=== PATIENT | female | born 1980 | race Caucasian/White ===

== ENCOUNTER 2022-04-04 14:53 | Outpatient (RCR) | payer BC, SELFPAY | END 2022-04-05 23:59 | disposition home or self-care (01) | LOC: CCIC 14:53 | PROVIDERS: PCP Family Medicine; Visit Provider Internal Medicine Hematology & Oncology | DX: C50.911 Malignant neoplasm of unspecified site of right female breast (principal); Z17.0 Estrogen receptor positive status [ER+]; Z90.13 Acquired absence of bilateral breasts and nipples; R23.2 Flushing; N93.9 Abnormal uterine and vaginal bleeding, unspecified; I89.0 Lymphedema, not elsewhere classified; R10.11 Right upper quadrant pain; N95.2 Postmenopausal atrophic vaginitis; G62.9 Polyneuropathy, unspecified | CPT/HCPCS: 99212; 99214 ==

== ENCOUNTER 2022-06-06 08:33 | Outpatient (CLI) | payer BC, SELFPAY ==
[2022-06-06 10:26] LABS: Cholesterol* 204 mg/dL (90-199); Glucose* 90 mg/dL (60-115); HDL Cholesterol* 75 mg/dL (>=50); LDL Cholesterol Calculated 112 mg/dL (<100); Triglycerides* 83 mg/dL (40-149)
== END 2022-06-06 08:34 | disposition home or self-care (01) ==
PROVIDERS: PCP Family Medicine; Visit Provider Registered Nurse
DX: Z01.419 Encounter for gynecological examination (general) (routine) without abnormal findings (principal); R00.2 Palpitations; Z13.1 Encounter for screening for diabetes mellitus; Z13.6 Encounter for screening for cardiovascular disorders
CPT/HCPCS: 80061; 82947; 84443

== ENCOUNTER 2022-06-20 14:14 | Outpatient (CLI) | payer BC, SELFPAY ==
--- NOTE | 2022-06-20 14:30 | CRLHL7_ITS ---
For Patients: As a result of the Century Cures Act, medical imaging exams and procedure reports are released immediately into your electronic medical record. You may view this report before your referring provider. If you have questions, please contact your health care provider. HISTORY: Left hip pain. History of breast cancer. TECHNIQUE: MRI left hip with and without contrast. 15 cc IV Dotarem. COMPARISON: 07/21/2020 PET-CT FINDINGS: Left hip: No significant joint effusion. Articular cartilage is intact. Acetabular labrum is intact. No avascular necrosis. - Right hip: On the large [id number]-ck-sxyw images of the entire pelvis, articular cartilage about the right hip is intact. No significant right hip effusion. Technique is not optimized for evaluation of internal derangement of the right hip. - Osseous structures: There is no acute pelvic or proximal femoral fracture. No suspicious osseous lesion. - Musculotendinous structures and bursae: Gluteal tendons and muscles are intact. Hamstring origins are intact.The distal iliopsoas tendons are intact. No evidence of trochanteric or iliopsoas bursitis. Muscle volume is within normal limits. - Other findings: Pubic symphysis and sacroiliac joints are intact. - Intrapelvic soft tissues: No significant abnormality. IMPRESSION: No specific findings to account for patient`s symptoms. No suspicious osseous lesion. Dictated by Delano Lockwood MD @ 06/21/2022 11:00:16 AM (Electronically Signed)
--- NOTE | 2022-06-21 11:35 | ONC.NURNOTE ---
Breast Safety Clothing And Equipment Developer Note Called pt and reviewed MRI results with her. No osseous lesions or other issue noted on report. Copy in Dr. Tidwell's folder to review when next in clinic.
== END 2022-06-20 14:15 | disposition home or self-care (01) ==
LOC: MRI 14:15
PROVIDERS: PCP Family Medicine; Visit Provider Internal Medicine Hematology & Oncology
DX: Z85.3 Personal history of malignant neoplasm of breast (principal); M25.552 Pain in left hip
CPT/HCPCS: 73723; A9575

== ENCOUNTER 2022-11-20 13:45 | Outpatient (RCR) | payer BC, SELFPAY | END 2022-12-14 15:24 | disposition home or self-care (01) | PROVIDERS: PCP Family Medicine; Visit Provider Family Medicine | DX: I89.0 Lymphedema, not elsewhere classified (principal); Z51.89 Encounter for other specified aftercare | CPT/HCPCS: 97110; 97161 ==

== ENCOUNTER 2022-12-28 08:30 | Outpatient (RCR) | payer BC, SELFPAY ==
--- NOTE | 2022-08-28 14:57 | PC.NURSE ---
ONCOLOGY TRANSFER: Patient called to discuss the letter she had received in the mail about [facility]/Dr. Tidwell. Patient informed that starting in December, Dr. Tidwell will be seeing patients in [place] as a [facility] provider. Patient requests to continue her care with Dr. Tidwell and the [facility] providers.
== END 2023-02-03 23:59 | disposition home or self-care (01) ==
LOC: CCIC 08:30
PROVIDERS: PCP Family Medicine; Visit Provider Nurse Practitioner Family
DX: C50.911 Malignant neoplasm of unspecified site of right female breast (principal); Z17.0 Estrogen receptor positive status [ER+]; Z79.810 Long term (current) use of selective estrogen receptor modulators (SERMs); Z90.13 Acquired absence of bilateral breasts and nipples; K64.9 Unspecified hemorrhoids
CPT/HCPCS: 99212; 99214; 99215

== ENCOUNTER 2023-03-26 07:30 | Outpatient (RCR) | payer BC, SELFPAY ==
--- OUTSIDE RECORDS SUMMARY | 2022-03-30 09:05 | XMS_ITS | Continuity of Care Document ---
:1980 Author Care Team Providers Name Role Phone MD Merle Howard Primary Care Physician MD Yaw Attending Physician Unavailable Allergies, Adverse Reactions, Alerts Allergen Type Severity Reaction Last Verified Status Updated Penicillin Allergy Moderate hives May Yes Active 2020 Sulfa Allergy Moderate hives May Yes Active Antibiotics 2020 Social History Smoking Status Status Start Date End Date Date of Observat ion Never smoked tobacco December 07, 2021 7:01am (finding) Observation Status Observation Response Date of Response Does not exercise November 07, 2016 1 2:53pm Non-smoker November 07, 2016 1 2:53pm Social drinker November 07, 2016 1 2:53pm , 2 kids, 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 Own home/apt July 29, 2020 1 0:55am With whom do you live? Spouse July 29 0 10:55am Minor children July 29, 2020 1 0:55am Comment on who patient lives 16 AND 13 YEAR OLD CHILDREN Oct mynor 2019 10:55am with If YES, describe MINOR CHILDREN BUT THEY ARE July 10:55am PRETTY INDEPENDENT Additional Data Assigned Sex Female Problems Active Problems Medical Problem Onset Date Status Irritable bowel syndrome (IBS) Active Anxiety Active Herpes labialis Active History of kidney stones Active Varicose veins of both lower Active extremities Venous incompetence December, Active Invasive ductal carcinoma of right July, Activ e breast in female Health care directive on file January 21, 2020 Active Suspected 2019 novel coronavirus Active infection Educated about COVID-19 virus Active infection Encounter for screening for Active COVID-19 Tachycardia Active Palpitations Active [place] teeth extracted 1997 Active Hx of varicose vein stripping 2011 Active History of colonoscopy 2014 Active History of use of contraceptive Active intrauterine device (IUD) S/P mastectomy, bilateral August 02, 2020 Active Inactive/Resolved Problems Medical Problem Onset Date Status Varicose Vein Surgery Resolved Fluttering sensation of heart Resolved Irregular heart beats Resolved Medications Medication Status Dose Units Route Directions Qty Days Start End Ins tructions Date Date Cholecalcife Active 5000 UNIT OR Daily rol (Vitamin D3) 1,000 Unit TAB Fexofenadine Active 1 TAB PO Daily Hcl/Pseudoep hedrine (Fexofenadin e-Pseudoephe drine) 180 Mg/240 Mg TABCR Lactobacillu Active 1 CAP PO Daily s (Probiotic) CAP Magnesium Active 3 CAP PO Daily 360mg dot ly Glycinate (Magnesium Glycinate 665 Mg) 1 Cap CAP Nystatin Active 1 YAQUELIN TOP 2-3X/Day as 30 (Nystatin needed Cream) 30 Gm CR Idmkb-8-Tyvs Active 1200 MG PO Daily 100 Ethyl Esters (Fish Oil) 1,200 Mg CAP Oxybutynin Active 5 MG PO Twice A Day December ta ke half to Chloride , one tablet 2021 rwice daily. 8:55am Tamoxifen Active 20 MG PO Daily March Citrate 2020 2:48pm Triamcinolon Active 1 YAQUELIN TOP Twice A Day 21 March e Acetonide 8th, (Triamcinolo 2021 ne Acetonide 10:50am (Cream)) 0.1 % CRE Valacyclovir Active 2 GM PO As Directed 30 March 2 tab po q 12 Hcl as needed 8th, h x 24 h , 2021 NEEDED FOR 10:50am COLD SORES Vitamin E Active 180 MG PO Daily Acetaminophe Disconti 1-2 TAB PO Every 6 Julyb n/Hydrocodon nued Hours as , er e Bitart needed 2019, (Hydrocodone 9:03am 2019 -Acetaminoph 2:02pm en) 5 Mg/325 Mg TAB Aloe Vera Disconti 1 EACH PO Daily INGEST ING 1/4 (Bulk) (Aloe nued er CUP RAW ALOE Vera Virgil) , VERA LEAF Virgil POW 2019 DAILY 1:27pm Aloe Vera Disconti 99.5 % PO Daily Octobe (Topical) nued r (Aloe Vera , Gel) 99.5 % 2019 GEL 11:39a m Ascorbic Disconti 1000 MG PO Daily 100 Novemb Acid nued er (Vitamin C) , 1,000 Mg TAB 2019 1:27pm Azithromycin Disconti 250-50 MG PO As Directed 6 Februar F ebrua 500 MG ON DAY (Zithromax nued 0 y 6th, ry 1 THEN 2 50 MG Z-[place]) 250 2020 08, DAILY X 4 MORE Mg TAB 8:48am 2019 DAYS 2:12pm Azithromycin Disconti 250 MG PO As Directed 6 Decembe Ja nuar 2 TABS ON DAY (Zithromax nued r , y 8th, ONE TH EN 1 TAB Z-[place]) 250 2014 2015 DAILY DAY S 2-5 Mg TAB 2:36pm 1:07pm Bioflavonoid Disconti 2 TAB PO Daily Octobe Products nued r (Vitamin C , Plus 500 Mg) 2019 1 Tab TAB 11:39a m Calcium Disconti 500 MG PO Daily Novemb Carbonate nued er 2019 1:27pm Calcium-Magn Disconti 1 OR Daily December esium-Zinc nued , ( 2021 Calcium/Magn 8:36am esium/Zinc) TAB Calcium-Magn Disconti Unknow OR Februa esium-Zinc nued n Dose ry (Calcium , Magnesium & 2020 Zinc) 8:15am Unknown Strength TAB Cephalexin Disconti 500 MG PO Four Times 56 July b nued Daily , er 2020 , 9:03am 2019 2:02pm Chemtox Disconti DROP PO Twice A Day Mayed 2020 10:24a m Cholecalcife Disconti 1000 UNIT PO Daily 100 Novemb rol (Vitamin nued er D) 1,000 25th, Unit TAB 2019 1:27pm Cholecalcife Disconti 1 DROP PO Daily Octobe rol (Vitamin nued r D3) SHELLY 2019 11:39a m Cyanocobalam Disconti 1000 MCG PO Daily 100 Novemb in (Vitamin nued er B 12) 1,000 25th, Mcg TAB 2019 1:27pm Cyanocobalam Disconti 2 TAB PO Daily Octobe in (Vitamin nued r B 12) 500 rd, Mcg TAB 2019 11:39a m Cyanocobalam Disconti 2500 MCG PO Daily 100 Septem in (Vitamin nued yony B 12) 1,000 6th, Mcg TAB 2017 9:06am Dicyclomine Disconti 10 MG PO Four Times 56 Novembe Sept em Hcl (Bentyl) nued Daily r 23, yony 10 Mg CAP 2014 6th, 11:40am 2016 9:06am Diphtheria/T Disconti 0.5 ML IM Once 1 March etanus/Acell nued , , Pertussis 2017 2017 (Adacel) 0.5 3:18pm 3:21pm Ml INJ Doxycycline Disconti 100 MG PO Twice Daily 20 March Hyclate nued For 7 Days 2020 2:19pm Doxycycline Disconti 100 MG PO Twice Daily October dian Monohydrate nued For 10 Days 2019, 11:18am 2019 8:15am Ethinyl Disconti 1 TAB PO Daily February Octobe Estradiol/Le nued , r 2nd, vonorgestrel 2018 2018 (Lutera) 0.1 9:24am 9:26am Mg/0.02 Mg TAB Fexofenadine Disconti 180 MG PO Daily 90 Octobe Hcl (Keiko nued r Allergy) 180 , Mg TAB 2015 11:25a m Fish Oil Disconti 640 MG PO Daily Novemb nued er 2019 1:27pm Fluconazole Disconti 150 MG PO Once 1 Februa (Diflucan) nued ry 150 Mg TAB 2020 10:33a m Glucosamine Disconti 1000 MG PO Daily Novemb Sulfate nued er (Glucosamine , ) 1,000 Mg 2019 CAP 1:27pm Hydrocodone- Disconti 1-2 TAB PO Every 4-6 25 Septemb David velasco Acetaminophe nued Hours as er , er n ([place]) 5 needed 2016, Mg/325 Mg 10:57am 2016 TAB 1:46pm Loratadine Disconti 10 MG PO Daily 30 Decemb (Claritin) nued er 10 Mg TAB 2020 1:44pm Magic Disconti 5 ML PO Four Times 120 Decembe Debbi SWIS H AND SPIT, or swallow if throat is sore Mouthwash nued Daily as r , February C OMPOUND IF FIRST PRODUCT NOT COVERED (Lidocaine/B needed 2019 2020 enadryl/Maal 3:19pm 2:19pm ox) (First-Mouth wash Blm) Blm HIMANSHU Magnesium Disconti 0.02 TSP PO Daily Novemb 10/14 TS P Chl Akanksha nued er CRYSTALS , DISSOLVED IN 2019 CRANBERRY 1:27pm JUICE Magnesium Disconti 0.1 TSP XX Daily Decemb Chloride nued er (Magnesium , Chloride 2020 Hexahy) CRY 1:44pm Montelukast Disconti 10 MG PO Bedtime 05 August Decemb Sodium nued , er (Singulair) 2014, 10 Mg TAB 1:53pm 2014 2:26pm Multivitamin Disconti 1 TAB PO Daily Novemb s nued er (Multivitami , n/Minerals) 2019 TAB 1:27pm Nystatin Disconti 1 YAQUELIN TOP 2-3X/Day Mayobe (Nystatin nued , r Cream) 30 Gm 2019, CR 9:39am 2019 11:39a m Nystatin Disconti 403238 MG OR Daily Decemb (Bio-Statin) nued er Unknown , Strength CAP 2014 2:26pm Nystatin/Tri Disconti 1 YAQUELIN TOP Twice A Day Se ptem amcinolone nued r , yony Acetonide 2016 03, (Nystatin/Tr 1:32pm 2016 iamcinolone 9:06am Cream) 15 Gm CR Ondansetron Disconti 4 MG PO Every 6 30 Decembe March f or nausea not controlled with prochlorperazine Hcl nued Hours as r , , (compazin e), starting day 2 after chemotherapy. needed 2019 2020 11:17am 2:19pm Pentoxifylli Disconti 400 MG PO Three Times Erick h ne nued A Day , (Pentoxifyll 2021 ine Er) 400 8:36am Mg TAB Prednisone Disconti 20 MG PO Daily 5 Februar Februa nued y , ry 2020 08, 8:48am 2019 2:12pm Prednisone Disconti 20 MG PO Daily as 3 Octobe nued needed er r 13, , 2015 2015 10:40am 11:25a m Prochlorpera Disconti 10 MG PO Every 8-12 30 Novembe Demarcus e PRN zine Maleate nued Hours as r , , Na usea/vomitin needed for 2019 2020 g Nausea/Vomi 3:20pm 2:19pm ting Prochlorpera Disconti 10 MG PO Every 8-12 October dian PRN zine Maleate nued Hours as 13, ry Naus ea/vomitin needed for 2020 10th, g Nausea/Vomi 10:10am 2020 ting 10:33a m Rifampin Disconti 300 MG PO Twice A Day 13 March nued 2020 2:19pm Triamcinolon Disconti 1 YAQUELIN TOP Twice A Day May e e Acetonide nued , (Triamcinolo 2020 2021 ne Acetonide 8:43am 10:50a (Cream)) 0.1 m % CRE Ultimate Disconti 1120 MG PO Daily Octobe [place] nued r 2019 11:39a m Valacyclovir Disconti 2 GM PO As Directed Ju ne 2 tab po q 12 Hcl nued as needed r , h x 24 h , 2020 2021 NEEDED FOR 1:42pm 10:50a COLD SORES m Valacyclovir Disconti 1 GM PO As Directed Nov mb NEEDED FOR Hcl nued as needed er COLD SORES 2020 1:42pm Valacyclovir Disconti 1 GRAMS PO Three Times uar Oc amari Hcl nued A Day y 11, r (Valtrex) 1 2019, Gm TAB 2:42pm 2019 11:39a m Valacyclovir Disconti 2 GRAMS PO Twice A Day 10 October Au itzel Hcl nued , , (Valtrex) 1 2017 2019 Gm TAB 11:11am 10:56a m Valacyclovir Disconti 2 GRAMS PO Twice A Day 10 July Ja nuar Hcl nued , y (Valtrex) 1 2016, Gm TAB 3:pm 2017 11:11a m Valacyclovir Disconti 500 MG PO Twice A Day 16 October Se ptem Hcl nued 8th, yony (Valtrex) 2016 6th, 500 Mg TAB 1:20pm 2016 9:06am Valacyclovir Disconti 2000 MG PO Twice A Day 4 Decembe De cemb Hcl nued r 7th, er (Valtrex) 2014, 1,000 Mg TAB 4:37pm 2015 11:16a m Vitamin A Disconti 63327 UNIT PO Daily Novemb ([id number]) nued er 10,000 Unit , CAP 2019 1:27pm Zinc Disconti 30 MG PO Daily Novemb nued er 2019 1:27pm Zinc Sulfate Disconti 30 MG PO Daily 100 Octobe (Zinc nued r Sulfate (50 23rd, Mg 2019 Elemental)) 11:39a 220 Mg CAP m Zinc Sulfate Disconti 220 MG PO Daily 100 Septem (Zinc nued yony Sulfate (50 6th, Mg 2016 Elemental)) 9:06am Unknown Strength CAP Immunizations Immunization Event Date Not Given Dose Elevator Installer Lot Vac cine Reason Number Number Informatio n Statement (VIS) Deta il COVID-19 Moderna December 19, 2020 COVID-19 Moderna January 16, 2020 COVID-19 Moderna July 07, 2020 Influenza July Other SANOFI 2019 Reason Influenza August 082019 Influenza July 072019 Tetanus/Diptheri March 04, 1 a 2007 Tdap March 04, 1 (adolescent/adul 2007 t) Tdap March 11, 2 SANOFI (adolescent/adul 2017 t) Medical Equipment Device Date Implanted Device Details Heidi 133S Tissue August 02, 2020 THAIS: [id number] Expanders Issuing Agency: [facility] Device Id: [id number] Expiration Date: 02-05-24 Serial Number: [id number] Natrelle 133S Tissue August 02, 2020 THAIS: [id number] Expanders Issuing Agency: [facility] Device Id: [id number] Expiration Date: 02-05-24 Serial Number: [id number] PowerPort [employer] Implantable September 05, 2020 THAIS: [id number] Port Issuing Agency: [facility] Device Id: [id number] Expiration Date: 11-11-30 Lot Number: [id number] Advance Directives Advance Directive Response Recorded Date/Time Does Pt have Health Care No October 18 016 2:13pm Directive? Has patient completed a Yes December 07, 2021 7:01am Health Care Directive? Insurance Providers Guarantor Gilda Herrera Address [address] [facility] [address] Contact Info. Home Phone: Payer Policy Id Coverage Id Subscriber's Subscriber Id Effective E xpiration Name Date Date [place] [id number] Micky Herrera [place] [id number] Encounters Encounter Location(s) Arrival/Admit Date Discharge/Depart Date Provider(s) Registered [place] March 28, 2022 [facility] 4:00pm Plan of Treatment Future Tests Future scheduled test information is unavailable Pending Tests Pending diagnostic test information is unavailable Future Visits Future appointment information is unavailable Referrals to Other Providers Reason for Referral Start Provider Provider Contact Provider Address Referral Date Information Sunita Howard Work Phone: [facility] MARYANNE Adkins MD [address] [facility] [phone] Future Procedures Future procedure information is unavailable Future Medications Future medication information is unavailable Patient Instructions See Additional Instructions Heart Palpitations (ED) Tachycardia (ED) Charlie-Issa Drain Care (DC) Mastectomy (DC) Palonosetron (By injection) (Aloxi) Fosaprepitant (By injection) (Emend)
== END 2023-03-26 11:46 | disposition home or self-care (01) ==
PROVIDERS: PCP Family Medicine; Visit Provider Internal Medicine Hematology & Oncology
DX: I89.0 Lymphedema, not elsewhere classified (principal); Z51.89 Encounter for other specified aftercare
CPT/HCPCS: 97110; 97140; 97530

== ENCOUNTER 2023-06-04 07:35 | Outpatient (CLI) | payer BC, SELFPAY | END 2023-06-04 07:36 | disposition home or self-care (01) | LOC: NFLDREF 06-06 12:22 | PROVIDERS: PCP Family Medicine; Referring Provider Family Medicine; Visit Provider Registered Nurse | DX: Z01.419 Encounter for gynecological examination (general) (routine) without abnormal findings (principal); R79.89 Other specified abnormal findings of blood chemistry; Z13.6 Encounter for screening for cardiovascular disorders | CPT/HCPCS: 80053; 80061; 82607; 84443 ==

== ENCOUNTER 2023-06-12 09:34 | Outpatient (CLI) | payer BC, SELFPAY | END 2023-06-12 09:35 | disposition home or self-care (01) | PROVIDERS: PCP Family Medicine; Visit Provider Registered Nurse | DX: Z01.419 Encounter for gynecological examination (general) (routine) without abnormal findings (principal); R79.89 Other specified abnormal findings of blood chemistry; Z13.9 Encounter for screening, unspecified | CPT/HCPCS: 80048; 84443 ==

== ENCOUNTER 2023-10-21 14:10 | Outpatient (RCR) | payer BC, SELFPAY | END 2023-10-29 23:59 | disposition home or self-care (01) | LOC: CCIC 14:10 | PROVIDERS: PCP Family Medicine; Visit Provider Physician Assistant | DX: C50.911 Malignant neoplasm of unspecified site of right female breast (principal); Z17.0 Estrogen receptor positive status [ER+]; Z90.13 Acquired absence of bilateral breasts and nipples; F41.9 Anxiety disorder, unspecified; R23.2 Flushing | CPT/HCPCS: 99212; 99213; 99214; 99215; G0463 ==

== ENCOUNTER 2023-12-23 08:58 | Outpatient (CLI) | payer BC, SELFPAY | END 2023-12-23 08:59 | disposition home or self-care (01) | LOC: NFLDREF 12-25 11:21 | PROVIDERS: PCP Family Medicine; Referring Provider Family Medicine; Visit Provider Physician Assistant | DX: R74.01 Elevation of levels of liver transaminase levels (principal) | CPT/HCPCS: 80076 ==

== ENCOUNTER 2024-04-29 15:00 | Outpatient (RCR) | payer BC, SELFPAY ==
--- NOTE | 2023-11-08 13:43 | ONC.NURNOTE ---
Patient sent [employer] the following email: From: Merary Herrera [email or web address]> To: Aide [facility] [email or web address] Subject: Question For Jahaira Noble, I thought of a question I forgot to ask Jahaira at my appointment last week. A few months ago I had labs drawn before my well women?s exam. One of the tests that had to do with electrolytes was a little off. I talked with my doctor about it a little and she said I could have it tested again in a few months. Is this something I *should* follow up on, like is it a residual chemo problem? Or is it possible that I was dehydrated or some other bwi-k-zhx-deal kind of thing??On a side note, it is shocking how little the other departments take chemo into effect. My white count was FINALLY normal! Anyway, just wanted to ask while I was thinking about it. Patient informed that Jahaira reviewed her results. Patient reassured that her liver enzymes are not abnormal enough to be alarmed but because Tamoxifen can affect her LFTs, Jahaira recommends we check her LFTs in December. Patient also informed that there is no concern about her anion gap in terms of cancer. Patient informed of the same and she will call to schedule labs.
--- NOTE | 2024-02-24 15:08 | ONC.NURNOTE ---
Patient emailed [employer] to report that the [employer] is recommending an alternate therapy for the management of her hot flashes, due to using Oxybutynin for an off label purpose. 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 Patient informed that Dr. Tidwell sent an Rx for Veozah. We discussed the need to monitor LFTs. Patient recently had normal LFTs. We will repeat at her follow up in April. Patient verbalizes understanding.
[2024-04-28 12:07] LABS: Albumin* 4.3 g/dL (3.3-5.0)
[2024-04-28 12:09] LABS: Bilirubin Direct* 0.2 mg/dL (0.0-0.5); Bilirubin Total* 0.4 mg/dL (0.1-1.5)
[2024-04-28 12:10] LABS: Alanine Aminotransferase* 19 U/L (4-35); Alkaline Phosphatase* 57 U/L (40-150); Aspartate Amino Transferase* 32 U/L (12-35); Total Protein* 7.3 g/dL (6.0-8.3)
== END 2024-10-25 23:59 | disposition home or self-care (01) ==
LOC: CCIC 15:00
PROVIDERS: Internal Medicine Hematology & Oncology; PCP Family Medicine; Referring Provider Family Medicine; Visit Provider Internal Medicine Hematology & Oncology
DX: C50.911 Malignant neoplasm of unspecified site of right female breast (principal); Z17.0 Estrogen receptor positive status [ER+]
CPT/HCPCS: 36415; 80076; 99214; G0463

== ENCOUNTER 2024-06-17 10:51 | Outpatient (CLI) | payer BC, SELFPAY ==
--- OUTSIDE RECORDS SUMMARY | 2024-06-17 10:53 | XMS_ITS ---
Author Organization [facility] Address [address] [place] [address] Care Team Providers Care Pipe Line Walker Name Role Phone Unavailable Unavailable Unavailable Surgery Details Not on file Complications Check Surgery Details section. Procedure Estimated Blood Loss Check Surgery Details section. Procedure Findings Check Surgery Details section. Procedure Specimens Taken Check Surgery Details section.
--- OUTSIDE RECORDS SUMMARY | 2024-06-17 10:53 | XMS_ITS | Referral Summary ---
Author Organization [facility] Address [address] [place] [address] Care Team Providers Care Chairman And Chief Executive Officer Name Role Phone Elsewhere, Pcp Primary Care Provider Unavailabl e Source Comments Patient records contain information from all sites at [facility]. For routine questions regarding patient records, call [phone] during business hours, M-F 8:00 AM - 5:00 PM Central Time. Record requests for emergency care only can be directed to [phone] at any time.[facility] Allergies Active Allergy Reactions Criticality Noted Date Comments Penicillins Rash Low 06/08/2017 Sulfa (Sulfonamide Antibiotics) Rash Low 11/2016 Medications Medication Sig Dispensed Refills Start Date End Date Status Lactobacillus acidophilus (PROBIOTIC) 10 billion cell capsule Take by mouth. Active cholecalciferol (cholecalciferol) 1,000 Unit tablet Take 1,000 Units by mouth daily. Active tamoxifen (NOLVADEX) 20 mg tablet Take 20 mg by mouth daily. 04/05/2021 Active MAGNESIUM GLYCINATE ORAL Take 2 Scoops by mouth daily. 2 tsp 02/17/2021 Active oxyBUTYnin (DITROPAN) 5 mg tablet Take 2.5 mg by mouth 2 (two) times a day. 02/26/2023 Active omega-3 fatty acids-fish oil (fish oil) 360-1,200 mg capsule Take 1 capsule by mouth daily. Active Active Problems Problem Noted Date Diagnosed Date Malignant Neoplasm Of Breast Lower Outer Quadrant Female Right 08/17/2020 Cancer Staging:Pathologic stage from 08/02/2020:Stage IA(pT1c, pN1a, cM0, G2, ER+, NE+, HER2-) - Signed by Jl Mcleod M.D. on 08/17/2020 Immunizations Name Administration Dates Next Due Influenza, Unspecified 08/17/2020 SARS-COV-2 (COVID-19) - MODERNA(Discontinued) Td Preservative Free (TENIVAC, DECAVAC) 03/04/20 08 Tdap 03/11/2018,2008 Social History Tobacco Use Types Packs/Day Years Used Date Smoking Tobacco: Never Smokeless Tobacco: Never Tobacco Cessation:Counseling Given: Not Answered Alcohol Use Standard Drinks/Week Comments Not Currently 0 (1 standard drink = 0.6 oz pur e alcohol) Humiliation, Afraid, Rape, and Kick questionnair e Answer Date Recorded Within the last year, have y ou been afraid of your partner or ex-partner? No 03/28/2023 Within the last year, have y ou been humiliated or emotionally abused in other ways by your partner or ex-partner? No Within the last year, have y ou been kicked, hit, slapped, or otherwise physically hurt by your partner or ex-partner? No 03/28/2023 Within the last year, have y ou been raped or forced to have any kind of sexual activity by your partner or ex-partner? No 03/28/2023 Social Connection and Isolat ion Panel [NHANES] Answer Date Recorded In a typical week, how many times do you talk on the phone with family, friends, or neighbors? More than three times a week 11/29/2021 How often do you get togethe r with friends or relatives? Once a week 11/29/2021 How often do you attend chur or hindu services? More than 4 times per year 11/29/2021 Do you belong to any clubs o r organizations such as amish groups, unions, fraternal or athletic groups, or school groups? Yes 11/29/2021 How often do you attend meet ings of the clubs or organizations you belong to? 1 to 4 times per year 11/29/2021 Are you , , di vorced, , never , or living with a partner? 11/29/2021 AUDIT-C Answer Date Recorded Q1: How often do you have a drink containing alc ohol? Never 11/29/2021 Average Number of Drinks Not on file 022 Frequency of Binge Drinking Not on file 11/08 Overall Financial Resource Strain (CARDIA) Answe r Date Recorded How hard is it for you to pa y for the very basics like food, housing, medical care, and heating? Not hard at all 03/28/2023 PHQ-2 Answer Date Recorded PHQ-2 Score 0 01/31/2024 [facility] - Occupational Stress Questionnaire Answer Date Recorded Do you feel stress - tense, restless, nervous, or anxious, or unable to sleep at night because your mind is troubled all the time - these days? Only a little 11/29/2021 Exercise Vital Sign Answer Date Recorde d On average, how many days pe r week do you engage in moderate to strenuous exercise (like a brisk walk)? 2 days 03/28/2023 On average, how many minutes do you engage in exercise at this level? 30 min 03/28/2023 Hunger Vital Sign Answer Date Recorded Within the past 12 months, y ou worried that your food would run out before you got the money to buy more. Never true 03/28/20 23 Within the past 12 months, t he food you bought just didn't last and you didn't have money to get more. Never true 03/28/2023 PRAPARE - Transportation Answer Date Re corded In the past 12 months, has l ack of transportation kept you from medical appointments or from getting medications? No 03/08 In the past 12 months, has l ack of transportation kept you from meetings, work, or from getting things needed for daily living? No 03/28/2023 Nutrition Answer Date Recorded On average, how many serving s of fruits and vegetables do you eat per day (serving size is equal to 1 cup or approximately the size of a tennis ball)? 5 or more 03/28/2023 Dental Answer Date Recorded Dental: Regular Dentist Yes 12/02/19 Employment Answer Date Recorded Employment status Employed and actively working without restrictions 03/28/2023 Housing Stability Answer Date Recorded What is your living situation today? I have a [facility] [place] place to live 03/28/2023 Education Answer Date Recorded What is the highest level of school you have completed or the highest degree you have received? Bachelor's degree (e.g., BA, AB, BS) 12/02/2020 Sex and Gender Information Value Date Recorded Sex Assigned at Female 06/14/2021 8:12 PM CDT Gender Identity Female 12/02/2020 10:47 PM LICENSING WORKER Sexual Orientation Straight 12/02/2020 10 :47 PM LICENSING WORKER Last Filed Vital Signs Vital Sign Reading Time Taken Comments Blood Pressure 129/80 02/05/2024 2:59 PM CDT Pulse 79 02/05/2024 2:59 PM CDT Temperature 36.6 ??C (97.8 ??F) 02/05/2024 2:59 PM CD T Respiratory Rate 16 02/18/2018 2:19 PM CDT Oxygen Saturation 99% 06/01/2020 2:50 PM CDT Inhaled Oxygen Concentration - - Weight 78.8 kg (173 lb 11.6 oz) 02/05/2024 2:59 PM CDT Height 167.1 cm (5' 5.79) 02/05/2024 2:59 PM CD T Body Mass Index 28.22 02/05/2024 2:59 PM CDT Plan of Treatment Not on file Medical Devices Implanted Type Area Sex Therapist Device Identifier Shelf Expiration Date Model / Serial / Lot Breast Implant Breast Implant Breast Description:Natrelle Saline filled Expanders Misc Other Misc Other Clavicle Description:Port on the left side collar bone (power port) Procedures Procedure Name Priority Date/Time Associated Diagnosis Comments OUTSIDE MG MAMMOGRAM Routine 07/08/2020 8:50 AM CDT from Last 3 Months or Most Recently Relevant to Health Maintenance Results * DIAGNOSTIC MAMMO, RIGHT, W/CAD-Outside Mammogram (07/08/2020 8:50 AM CDT) Narrative IIMS - 08/09/2020 10:19 AM LICENSING WORKER This order has been created and auto-finalized to support the import of outside images. If available, original interpretation can be found on the Media Tab in Chart Review, in Document Viewer, or as an image in QREADS. If a re-interpretation or overread is required please follow defined workflow. ?? Provider Not In System IMG BI PROCEDURES IIMS NA from Last 3 Months or Most Recently Relevant to Health Maintenance Care Teams Chairman And Chief Executive Officer Relationship Specialty Start Date End Date Elsewhere, Pcp PCP - General Internal Medicine 04/29/20
--- OUTSIDE RECORDS SUMMARY | 2024-06-17 10:53 | XMS_ITS | Referral Summary ---
Author Organization [facility] Address [address] [place] [id number] Care Team Providers Care Jerker Name Role Phone No Ref-Primary, Physician Primary Care Provider Allergies Active Allergy Reactions Criticality Noted Date Comments Penicillins 01/25/2021 Sulfa Antibiotics 01/25/2021 Social History Tobacco Use Types Packs/Day Years Used Date Smoking Tobacco: Never Assessed Adolescent Education Answer Date Record ed Getting School Help Needed Not on file 06/28 Sex and Gender Information Value Date Recorded Sex Assigned at Not on file Gender Identity Not on file Sexual Orientation Not on file Plan of Treatment Not on file Care Teams Jerker Relationship Specialty Start Date End Date No Ref-Primary, Physician PCP - General 01/06/18
--- OUTSIDE RECORDS SUMMARY | 2024-06-17 10:53 | XMS_ITS ---
Author Organization [facility] Address [address] [place] [address] Care Team Providers Care Soda Jerker Name Role Phone Elsewhere, Pcp Primary Care Provider Unavailabl e Active Problems Problem Noted Date Diagnosed Date Malignant Neoplasm Of Breast Lower Outer Quadrant Female Right 08/17/2020 Cancer Staging:Pathologic stage from 08/02/2020:Stage IA(pT1c, pN1a, cM0, G2, ER+, MA+, HER2-) - Signed by Jl Mcleod M.D. on 08/17/2020 Current Oncology Plans No current plan information found. Past Plans No past plan information found. Radiation Treatments * Plan Last Treated On Elapsed Days Fractions Treated Prescribed Fraction Dose Prescribed Total Dose [id number] 03/31/2021 18 15 of 15 300 cGy 4,500 cGy Reference Point Last Treated On Elapsed Days Session Dose Total Dose dpv 4500 p 03/31/2021 18 300 cGy 4,500 cGy
--- OUTSIDE RECORDS SUMMARY | 2024-06-17 10:53 | XMS_ITS | Clinical Summary ---
Author Organization [facility] Address [place], [place] [address] Care Team Providers Care Senior Landscape Architect Name Role Phone Sunita Howard MD Primary Care Provider + Allergies Active Allergy Reactions Criticality Noted Date Comments Penicillins Rash Low 06/08/2017 Sulfa (Sulfonamide Antibiotics) Rash Low 11/2016 Medications Medication Sig Dispensed Refills Start Date End Date Status cholecalciferol (VITAMIN D3) 1,000 unit tablet Take 1,000 Units by mouth. Active Lactobacillus acidophilus 10 billion cell cap Take by mouth. Acti ve tamoxifen (NOLVADEX) 20 mg tablet Take 20 mg by mouth once daily. 09/29/2021 Active efinaconazole (Jublia) 10 % topical solutionIndications:D ermatophytosis of nail Apply topically to affected area(s) once daily. 8 mL 2 11/21/2021 Active ciclopirox solution (Penlac) 8 % solutionIndications:D ermatophytosis of nail Apply topically to affected area(s) at bedtime. 6.6 mL 12/20/2021 Active Immunizations Name Administration Dates Next Due Influenza, IIV4 08/17/2020 Social History Tobacco Use Types Packs/Day Years Used Date Smoking Tobacco: Never Smokeless Tobacco: Never Tobacco Cessation:Counseling Given: Yes Alcohol Use Standard Drinks/Week Comments Not Currently 0 (1 standard drink = 0.6 oz pur e alcohol) Social Connections Answer Date Recorded Frequency of Communication with Friends and Fami ly Not on file 06/29/2022 Financial Resource Strain Answer Date R ecorded Difficulty of Paying Living Expenses Not on file 10/07/2021 Difficulty of Paying Living Expenses Not on file 10/07/2021 Sex and Gender Information Value Date Recorded Sex Assigned at Female 11/18/2021 3:57 PM TICKETING CLERK Gender Identity Female 11/18/2021 3:57 PM TICKETING CLERK Sexual Orientation Straight 11/18/2021 3: 57 PM TICKETING CLERK Obstetrics History Last Filed Vital Signs Vital Sign Reading Time Taken Comments Blood Pressure 119/82 11/21/2021 3:01 PM TICKETING CLERK tow er Pulse 82 11/21/2021 3:01 PM TICKETING CLERK Temperature 36.7 ??C (98 ??F) 08/17/2020 9:03 AM TICKETING CLERK Respiratory Rate 18 08/15/2020 12:48 PM TICKETING CLERK Oxygen Saturation 99% 11/21/2021 3:01 PM TICKETING CLERK Inhaled Oxygen Concentration - - Weight 72.6 kg (160 lb) 11/21/2021 3:01 PM TICKETING CLERK Height 165.1 cm (5' 5) 08/15/2020 9:30 AM TICKETING CLERK Body Mass Index 26.63 08/15/2020 9:30 AM TICKETING CLERK Plan of Treatment Health Maintenance Due Date Last Done Comments Tdap 1991 Depression screening for age 12+ 1992 HIV for age 15-65 1995 BMI (ht and wt on same day) for age 18+ 1998 Hepatitis C screening for age 18-79 1998 Tetanus booster 2000 Pap test for age 21-65 05/29/2024 , 05/29/2021, 10/14/2015, Additional history exists COVID-19 vaccine series (2022- season) 2024 07/07/2021, 01/16/2021, 12/19/2020 Influenza for age 9-49 06/07/2024 08/17/2020 Pneumococcal series for age 6-64 Aged Out No longer eligible based on patient's age to complete this topic Procedures Procedure Name Priority Date/Time Associated Diagnosis Comments FOUNTAIN DISPENSER THIN PREP PAP SCREEN IMAGED Routine 05/29/2021 11:40 AM CDT from Last 3 Months or Most Recently Relevant to Health Maintenance Results * FOUNTAIN DISPENSER THIN PREP PAP SCREEN IMAGED (05/29/2021 11:40 AM CDT) Case Report Gynecologic Cytology Report ? Case: [id number] ? Authorizing Provider: ??Elen Hall ??Collected: ? 05/29/2021 1140 ? M, MD ? Ordering Location: ? [facility] ?Received: ?05/30/2021 0946 ? First Screen: ?Antonieta Quezada ? Specimen: ?FOUNTAIN DISPENSER ThinPrep Vial Screening, Cervical/Vaginal ? 06/09/2021 1:02 PM CDT [facility] INTERPRETATION/ RESULT NEGATIVE FOR INTRAEPITHELIAL LESION OR MALIGNANCY (NIL) (none) 06/09/2021 1:02 PM CDT [facility] NISM(S) Shift in rob suggestive of bacterial vaginosis 06/09/2021 1:02 PM CDT [facility] SPECIMEN ADEQUACY Satisfactory for evaluation Endocervical component present 06/09/2021 1:02 PM CDT [facility] HPV REQUEST HPV and PAP 06/09/2021 1:02 PM CDT [facility] Date of LMP 09/06/2020 06/09/2021 1:02 PM CDT [facility] Last Pap Date 10/14/2015 06/09/2021 1:02 PM CDT [facility] Last Pap Result NIL 1:02 PM CDT [facility] Comment:Neg hp Additional Information 06/09/2021 1:02 PM CDT [facility] Comment: Interpreted at [facility] - [address], [place] [address] Automated Review Successful 06/09/2021 1:02 PM CDT [facility] Comment:Specimen processed s uccessfully by automated junior systems administrator device, ThinPrep Imaging System, [employer] ANCILLARY TESTING FOUNTAIN DISPENSER HPV Ordered, Please see separate report 06/09/2021 1:02 PM CDT [facility] Note The pap test is a screening technique, not a diagnostic procedure. It is used primarily to screen for squamous cancers and precursor lesions. Published studies have shown that it is subject to both false negative and false positive results. The pap test should not be used as the sole means to diagnose or exclude pre-malignant and malignant lesions. 06/09/2021 1:02 PM CDT [facility] Other (Cervical/Vagina l) 05/29/2021 11:40 AM CDT 05/30/2021 9:46 AM CDT Elen Hall MD PATHOLOGY/ CYTOLOGY [facility] [address] [place] [address], [place] from Last 3 Months or Most Recently Relevant to Health Maintenance Advance Directives * Full Code (Latest Code Status on File) Date Activated Date Inactivated Comments 08/15/2020 9:23 AM 08/15/2020 3:38 PM Question Answer Comments Code Status Discussion: Per Existing Order Care Teams Senior Landscape Architect Relationship Specialty Start Date End Date Sunita Howard MD [address] [place] [address] PCP - General Family Practice 06/15/20
--- OUTSIDE RECORDS SUMMARY | 2024-06-17 10:53 | XMS_ITS | Clinical Summary ---
Author Organization [facility] Address [address] [place] [id number] Care Team Providers Care Employment Educational Coord Name Role Phone No Ref-Primary, Physician Primary [...] of Treatment Not on file Care Teams Employment Educational Coord Relationship Specialty Start Date End Date No Ref-Primary, Physician PCP - General 01/06/18
--- OUTSIDE RECORDS SUMMARY | 2024-06-17 10:53 | XMS_ITS | Clinical Summary ---
Author Organization [facility] Address [address] [place] [address] Care Team Providers Care Assistant Offset Press Operator Name Role Phone Elsewhere, Pcp Primary Care Provider Unavailabl e Source Comments Patient records contain information from all sites at [facility]. For routine questions regarding patient records, call [phone] during business hours, M-F 8:00 AM - 5:00 PM Central Time. Record requests for emergency care only can be directed to [phone] at any time.[facility] Allergies Active Allergy Reactions Criticality Noted Date [...] from 08/02/2020:Stage IA(pT1c, pN1a, cM0, G2, ER+, GA+, HER2-) - Signed by Jl Mcleod M.D. on 08/17/2020 Immunizations Name Administration Dates Next Due Influenza, Unspecified 08/17/2020 SARS-COV-2 (COVID-19) - MODERNA(Discontinued) Td Preservative Free (TENIVAC, DECAVAC) 03/04/20 08 Tdap 03/11/2018,2008 Family History Medical History Relation Name Comments Genetic disease Brother Kareem DiGeorge Syn drome Learning disorder Brother Kareem Psychiatric Brother Kareem Arthritis Father Jose Enrique Colon polyps Father Jose Enrique Hyperlipidemia Father Jose Enrique Obesity Father Jose Enrique Kidney cancer Father's Brother 1 Hira Kidney, brain & lung Arthritis Father's Brother 2 Chris Hyperlipidemia Father's Brother 2 Chris Obesity Father's Brother 2 Chris Thyroid disease Father's Brother 2 Chris Hyper thyroid Arthritis Father's Brother 3 Vincent Hyperlipidemia Father's Brother 3 Vincent Obesity Father's Brother 3 Vincent Hyperlipidemia Father's Sister Madhavi Obesity Father's Sister Madhavi Thyroid disease Father's Sister Madhavi Hypo thyr oid Arthritis Maternal Grandfather Rao Coronary artery disease Maternal Grandfather Rao Stents/disease Diabetes Maternal Grandfather Rao Hyperlipidemia Maternal Grandfather Rao Hypertension Maternal Grandfather Rao Kidney disease Maternal Grandfather Rao Obesity Maternal Grandfather Rao Arthritis Maternal Grandmother Sabasshaggy Breast cancer Maternal Grandmother Sabasshaggy Age 77 ? Hyperlipidemia Maternal Grandmother Sabasshaggy Hypertension Maternal Grandmother Sabasshaggy Osteoporosis Maternal Grandmother Sabasshaggy Transient ischemic attack Maternal Grandmother Sabas shaggy Hyperlipidemia Mother Cecilia Obesity Mother Cecilia Skin cancer Mother Cecilia Squamous Coronary artery disease Mother's Brother Jc Stents Hyperlipidemia Mother's Brother Jc Sleep apnea Mother's Brother Jc Hyperlipidemia Mother's Sister Sharri Hypertension Mother's Sister Sharri Arthritis Paternal Grandfather Glenn Coronary artery disease Paternal Grandfather Glenn Heart attack? Dementia Paternal Grandfather Glenn Hyperlipidemia Paternal Grandfather Glenn Hypertension Paternal Grandfather Glenn Obesity Paternal Grandfather Glenn Other cancer Paternal Grandfather Glenn Bladder Arthritis Paternal Grandmother Arina Coronary artery disease Paternal Grandmother Arina Valve disease, congestive heart failure Hyperlipidemia Paternal Grandmother Arina Hypertension Paternal Grandmother Arina Obesity Paternal Grandmother Arina Osteoporosis Paternal Grandmother Arina Obesity Sister Fay Thyroid disease Sister Fay Hashimotos Relation Name Status Comments Brother Kareem Father Jose Enrique Father's Brother 1 Hira Father's Brother 2 Chris Father's Brother 3 Vincent Father's Sister Madhavi Maternal Grandfather Rao Maternal Grandmother Jessica Mother Cecilia Mother's Brother Jc Mother's Sister Sahrri Paternal Grandfather Glenn Paternal Grandmother Arina Sister Fay Social History Tobacco Use Types Packs/Day Years [...] 11/29/2021 How often do you attend chur ch or sabianist services? More than 4 times per year 11/29/2021 Do you belong to any clubs o r organizations such as catholic groups, unions, fraternal or athletic groups, or [...] Answer Date Recorded PHQ-2 Score 0 01/31/2024 [facility] [facility] Occupat ional Health - Occupational Stress [...] CDT Gender Identity Female 12/02/2020 10:47 PM KENO DEALER Sexual Orientation Straight 12/02/2020 10 :47 PM KENO DEALER Last Filed Vital Signs Vital Sign Reading [...] 02/05/2024 2:59 PM CDT Plan of Treatment Health Maintenance Due Date Last Done Comments HIV Screening 1980 Hepatitis C Screening 1980 Lipid (Cholesterol) Screening 1980 Hepatitis B Vaccines (1 of 3 - 19+ 3-dose series) 1999 Zoster Vaccines (1 of 2) 1999 Mammogram 07/08/2021 07/08/2020, 06/08, 06/24/2020 Cervical Cancer Screening 05/29/2024 05/29/2021 Influenza Vaccine (#1) 2024 07/17/2022, 2019 DTaP,Tdap,and Td Vaccines (4 - Td or Tdap) 03/11/2028 03/11/2018, 2008, 2008 COVID-19 Vaccine Completed 08/12/2023, 08/2022, 07/07/2021, Additional history exists Depression Screening (Annual PHQ-2) Completed 02/05/2024, 01/31/2024 HPV Vaccines Aged Out No longer eligi ble based on patient's age to complete this topic Pneumococcal vaccine (0-64 years) Aged Out No longer eligible based on patient's age to complete this topic Medical Devices Implanted Type Area Web Methods Developer Device Identifier Shelf Expiration Date Model / Serial / Lot Breast Implant Breast Implant Breast Description:Natmayrae Saline filled Expanders Misc Other Misc Other Clavicle Description:Port on the left side collar bone (power port) Procedures Procedure Name Priority Date/Time Associated Diagnosis Comments OUTSIDE MG MAMMOGRAM Routine 07/08/2020 8:50 AM CDT from Last 3 Months or Most Recently Relevant to Health Maintenance Results * DIAGNOSTIC MAMMO, RIGHT, W/CAD-Outside Mammogram (07/08/2020 8:50 AM CDT) Narrative IIMS - 08/09/2020 10:19 AM KENO DEALER This order has been created and auto-finalized [...] Recently Relevant to Health Maintenance Care Teams Assistant Offset Press Operator Relationship Specialty Start Date End Date Elsewhere, Pcp PCP - General Internal Medicine 04/29/20
== END 2024-06-17 10:52 | disposition home or self-care (01) ==
LOC: NFLDREF 10:51
PROVIDERS: PCP Family Medicine; Visit Provider Registered Nurse
DX: R63.5 Abnormal weight gain (principal)
CPT/HCPCS: 84443

== ENCOUNTER 2025-01-25 08:01 | Outpatient (CLI) | payer BC, SELFPAY | END 2025-01-25 08:02 | disposition home or self-care (01) | LOC: NFLDREF 01-27 02:49 | PROVIDERS: PCP Family Medicine; Referring Provider Family Medicine; Visit Provider Physician Assistant | DX: C50.611 Malignant neoplasm of axillary tail of right female breast (principal) | CPT/HCPCS: 80076 ==

== ENCOUNTER 2025-04-13 08:50 | Outpatient (CLI) | payer BC, SELFPAY | END 2025-04-13 08:51 | disposition home or self-care (01) | LOC: NFLDREF 04-15 12:40 | PROVIDERS: PCP Family Medicine; Referring Provider Family Medicine; Visit Provider Physician Assistant | DX: C50.911 Malignant neoplasm of unspecified site of right female breast (principal) | CPT/HCPCS: 80076 ==

== ENCOUNTER 2025-04-15 14:50 | Outpatient (RCR) | payer BC, SELFPAY ==
[2024-10-26 13:42] LABS: Albumin* 4.4 g/dL (3.3-5.0)
[2024-10-26 13:45] LABS: Alkaline Phosphatase* 43 U/L (40-150); Aspartate Amino Transferase* 27 U/L (12-35); Bilirubin Direct* 0.2 mg/dL (0.0-0.5); Bilirubin Total* 0.4 mg/dL (0.1-1.5); Total Protein* 7.2 g/dL (6.0-8.3)
[2024-10-26 13:46] LABS: Alanine Aminotransferase* 19 U/L (4-35)
== END 2025-04-24 23:59 | disposition home or self-care (01) ==
LOC: CCIC 14:50
PROVIDERS: Internal Medicine Hematology & Oncology; PCP Family Medicine; Referring Provider Family Medicine; Visit Provider Physician Assistant
DX: C50.911 Malignant neoplasm of unspecified site of right female breast (principal); Z17.0 Estrogen receptor positive status [ER+]; Z90.13 Acquired absence of bilateral breasts and nipples; Z79.810 Long term (current) use of selective estrogen receptor modulators (SERMs)
CPT/HCPCS: 36415; 80076; 99214; G0463

== ENCOUNTER 2025-05-05 08:02 | Outpatient (CLI) | payer BC, SELFPAY ==
--- NOTE | 2025-05-05 08:15 | CRLHL7_ITS ---
For Patients: As a result of the Century Cures Act, medical imaging exams and procedure reports are released immediately into your electronic medical record. You may view this report before your referring provider. If you have questions, please contact your health care provider. INDICATION: 45 year-old female. Mild discomfort/palpable abnormality along the anterolateral upper right chest wall/axilla. 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 TECHNIQUE : Directed soft tissue ultrasound of the anterolateral right chest wall/inferior axillary region. FINDINGS: Only normal tissue is identified. No underlying mass. No lymphadenopathy. No fluid collections. There are postsurgical changes within the skin of the anterior lateral right chest wall related to the prior mastectomy/axillary lymph node dissection. IMPRESSION: Negative directed soft tissue ultrasound of the anterior/anterolateral right chest wall/inferior right axilla. Dictated by Esequiel Curry MD @ 05/05/2025 9:30:08 AM (Electronically Signed)
== END 2025-05-05 08:03 | disposition home or self-care (01) ==
LOC: US 08:02
PROVIDERS: PCP Family Medicine; Visit Provider Physician Assistant
DX: R22.2 Localized swelling, mass and lump, trunk (principal)
CPT/HCPCS: 76604; 76882

== ENCOUNTER 2025-07-19 10:14 | Outpatient (CLI) | payer BC, SELFPAY ==
--- NOTE | 2025-07-19 11:52 | P.ANES_ITS ---
Anesthesia Charges Start Date/Time Anesthesia Start Date: 07/19/25 Anesthesia Start Time: 11:20 Stop Date/Time Anesthesia Stop Date: 07/19/25 Anesthesia Stop Time: 11:50 Coding CPT Codes CPT Codes: MIKAYLA LWR INTST SCR COLSC - 52381 ([id number]) P2 - PATIENT W/MILD SYST DISEASE, QX - PERSONAL BANKER SVC W/ MD MED DIRECTION, QK - PHOTO LAB MANAGER 2-4 CNCRNT ANES PROC
--- NOTE | 2025-07-19 11:52 | W.ANESCHARGE ---
Anesthesia Charges Start Date/Time Anesthesia Start Date: 07/19/25 Anesthesia Start Time: 11:20 Stop Date/Time Anesthesia Stop Date: 07/19/25 Anesthesia Stop Time: 11:50 Coding CPT Codes CPT Codes: MIKAYLA LWR INTST SCR COLSC - 71590 ([id number]) P2 - PATIENT W/MILD SYST DISEASE, QX - DIRECTOR OF OUTPATIENT SERVICES SVC W/ MD MED DIRECTION, QK - WILL CALL CLERK 2-4 CNCRNT ANES PROC
--- NOTE | 2025-07-19 11:56 | P.ANES_ITS ---
Anesthesia Charges Start Date/Time Anesthesia Start Date: 07/19/25 Anesthesia Start Time: 11:20 Stop Date/Time Anesthesia Stop Date: 07/19/25 Anesthesia Stop Time: 11:50 Coding CPT Codes CPT Codes: MIKAYLA LWR INTST SCR COLSC - 15593 ([id number]) P2 - PATIENT W/MILD SYST DISEASE, QK - VETERINARIAN 2-4 CNCRNT ANES PROC, QX - SERVER MANAGER SVC W/ MD MED DIRECTION
--- NOTE | 2025-07-19 11:56 | W.ANESCHARGE ---
Anesthesia Charges Start Date/Time Anesthesia Start Date: 07/19/25 Anesthesia Start Time: 11:20 Stop Date/Time Anesthesia Stop Date: 07/19/25 Anesthesia Stop Time: 11:50 Coding CPT Codes CPT Codes: MIKAYLA LWR INTST SCR COLSC - 01851 ([id number]) P2 - PATIENT W/MILD SYST DISEASE, QK - AREA FIELD PERSON 2-4 CNCRNT ANES PROC, QX - [employer] MACHINE OPERATOR SVC W/ MD MED DIRECTION
== END 2025-07-19 10:15 | disposition home or self-care (01) ==
LOC: OP CLINIC 10:16
PROVIDERS: PCP Family Medicine; Visit Provider Registered Nurse
DX: Z12.11 Encounter for screening for malignant neoplasm of colon (principal)
CPT/HCPCS: 00812; 45378; J2704

== ENCOUNTER 2025-07-25 10:00 | Outpatient (CLI) | payer BC, SELFPAY | END 2025-07-25 10:01 | disposition home or self-care (01) | LOC: NFLDREF 07-29 16:18 | PROVIDERS: PCP Family Medicine; Referring Provider Family Medicine | DX: N30.00 Acute cystitis without hematuria (principal) | CPT/HCPCS: 87086 ==